=== PATIENT | male | born 1945 | race Caucasian/White ===

== ENCOUNTER → 2024-09-09 | Outpatient (REF) | payer MEDICARE ==
[2024-09-09 11:16] LABS: BASO # 0.0 10^3/uL (0.0-0.2); BASO % 0.2 % (0.0-1.0); EOS # 0.0 10^3/uL (0.0-0.5); EOS % 0.1 % (0.0-3.0); LYMPH # 0.5 10^3/uL (1.5-5.0); LYMPH % 2.8 % (24.0-44.0); MONO # 0.8 10^3/uL (0.0-0.8); MONO % 4.1 % (2.0-8.0); NEUTROPHILS # 17.5 10^3/uL (1.5-8.5); NEUTROPHILS % 91.4 % (36.0-66.0); PLATELET COUNT, AUTOMATED 520 10^3/uL (150-450)
[2024-09-09 11:46] LABS: ALT/SGPT 15 U/L (7.0-40); AST/SGOT 14 U/L (<34); CALCIUM LEVEL 8.9 MG/DL (8.3-10.6); CARBON DIOXIDE LEVEL 25 MMOL/L (20-31); CHLORIDE LEVEL 101 MMOL/L (98-107); CREATININE FOR GFR 0.70 MG/DL (0.70-1.30); GLOMERULAR FILTRATION RATE > 90.0 (>42); POTASSIUM SERUM 4.7 MMOL/L (3.5-5.1); SODIUM LEVEL 138 MMOL/L (136-145)
== END ==
LOC: SKLAB4 07:00
PROVIDERS: ATTEND Internal Medicine
DX: I10 Essential (primary) hypertension (principal)

== ENCOUNTER → 2024-11-28 | Outpatient (REF) | payer MEDICARE, MEDICAID, OTHER ==
[2024-11-28 11:08] LABS: PLATELET COUNT, AUTOMATED 436 10^3/uL (150-450)
[2024-11-28 11:40] LABS: PSA SCREENING 1.19 NG/ML (< 4.00)
[2024-11-28 11:45] LABS: TOTAL 25(OH) VITAMIN D 54.9 NG/ML (20.0-100.0)
[2024-11-28 11:50] LABS: ALT/SGPT 11 U/L (7.0-40); AST/SGOT 13 U/L (<34); CALCIUM LEVEL 9.0 MG/DL (8.3-10.6); CARBON DIOXIDE LEVEL 26 MMOL/L (20-31); CHLORIDE LEVEL 102 MMOL/L (98-107); CHOLESTEROL LEVEL 153 MG/DL (<200); CHOLESTEROL RISK RATIO 2.80 (<5); CREATININE FOR GFR 0.71 MG/DL (0.70-1.30); GLOMERULAR FILTRATION RATE > 90.0 (>42); LDL CHOLESTEROL 73.0 MG/DL (<100); NON-HDL-C 98.4 MG/DL; POTASSIUM SERUM 4.5 MMOL/L (3.5-5.1); SODIUM LEVEL 137 MMOL/L (136-145); TRIGLYCERIDES LEVEL 127 MG/DL (<150)
== END ==
LOC: SKLAB4 07:00
PROVIDERS: ATTEND Internal Medicine
DX: N40.1 Benign prostatic hyperplasia with lower urinary tract symptoms (principal); E55.9 Vitamin D deficiency, unspecified; E78.5 Hyperlipidemia, unspecified; E03.9 Hypothyroidism, unspecified; I10 Essential (primary) hypertension; Z12.5 Encounter for screening for malignant neoplasm of prostate
CPT/HCPCS: 36415; 80053; 80061; 82306; 84443; 85027; G0103

== ENCOUNTER → 2024-12-27 | Outpatient (REF) | payer MEDICARE, MEDICAID, OTHER ==
[2024-12-27 08:17] LABS: CALCIUM LEVEL 9.1 MG/DL (8.3-10.6); CARBON DIOXIDE LEVEL 25 MMOL/L (20-31); CHLORIDE LEVEL 105 MMOL/L (98-107); CREATININE FOR GFR 0.79 MG/DL (0.70-1.30); GLOMERULAR FILTRATION RATE > 90.0 (>42); POTASSIUM SERUM 4.5 MMOL/L (3.5-5.1); SODIUM LEVEL 139 MMOL/L (136-145)
== END ==
LOC: SKLAB4 07:00
PROVIDERS: ATTEND Family Medicine
DX: E87.5 Hyperkalemia (principal); Z79.899 Other long term (current) drug therapy